=== PATIENT | female | born 1970 | race Caucasian/White ===

== ENCOUNTER 2017-04-20 14:15 | Emergency (ER) | payer MEDICAID ==
[~2017-04-20] VITALS: Ht 167.6 cm; Wt 90.0 kg
[2017-04-20 14:16] VITALS: BP 123/90; PULSE 92; RESP 24; TEMP 98.5; O2SAT 99
--- NOTE | 2017-04-20 15:13 | PD ---
HPI Chief Complaint: Corporate Receptionist Problem/Complaint Time Seen by Provider: 15:05 Travel History International Travel<30 days: No Contact w/Intl Traveler<30days: No Traveled to known affect area: No History of Present Illness HPI 46 year old female presents to the ED for evaluation of vaginal bleeding; irregular and frequent menses over the last year. She reports she has currently been bleeding for a month with a very short reprieve last week. Reports suprapubic abdominal pain; aching cramping. Denies urinary symptoms. Denies chance of . She has not sought followup or outpatient evaluation. Denies chest pain or tightness. No shortness of breath. No other symptoms to report. PFSH Past Medical History Medical History: Denies Significant Hx ?: Not Social History Alcohol Use: No Tobacco Use: Yes Substance Use: No Allergies-Medications (Allergen,Severity, Reaction): Coded Allergies: No Known Allergies (Unverified , 04/20/17) Reported Meds & Prescriptions Reported Meds & Active Scripts Active Provera (Medroxyprogesterone Acetate) 5 Mg Tab 5 Mg PO DAILY Start day 21 Review of Systems Except as stated in HPI: all other systems reviewed are Neg Physical Exam Narrative GENERAL: Well nourished female patient in no acute distress SKIN: Warm and dry. HEAD: Atraumatic. Normocephalic. EYES: Pupils equal and round. No scleral icterus. No injection or drainage. ENT: No nasal bleeding or discharge. Mucous membranes pink and moist. NECK: Trachea midline. No JVD. CARDIOVASCULAR: Regular rate and rhythm. RESPIRATORY: No accessory muscle use. Clear to auscultation. Breath sounds equal bilaterally. GASTROINTESTINAL: Abdomen soft, nondistended. Suprapubic tenderness to palpation. No guarding or rebound tenderness. Hepatic and splenic margins not palpable. GENITOURINARY: Normal external genitalia without lesions or erythema. Vaginal vault with moderate amount of dark red drainage Cervical os was open a finger tip with blood clot noted. No cervical motion tenderness. Uterus palpable and tender. Bilateral adnexa nontender without masses. MUSCULOSKELETAL: Extremities without clubbing, cyanosis, or edema. No obvious deformities. NEUROLOGICAL: Awake and alert. No obvious cranial nerve deficits. Motor grossly within normal limits. Five out of 5 muscle strength in the arms and legs. Normal speech. PSYCHIATRIC: Appropriate mood and affect; insight and judgment normal. Data Data Last Documented VS Vital Signs Date Time Temp Pulse Resp B/P (MAP) Pulse Ox O2 Delivery O2 Flow Rate FiO2 04/20/17 17:12 70 19 146/82 (103) 98 04/20/17 14:16 98.5 Room Air Orders Orders Iv Access Insert/Monitor (04/20/17 15:11) Complete Blood Count With Diff (04/20/17 15:11) Basic Metabolic Panel (Bmp) (04/20/17 15:11) Urinalysis - C+S If Indicated (04/20/17 15:11) Ed Urine Pregnancytest Poc (04/20/17 15:11) Sodium Chlor 0.9% 1000 Ml Inj (Ns 1000 M (04/20/17 15:15) Ketorolac Inj (Toradol Inj) (04/20/17 16:15) Us Pelvis Comp W Dop Transvag (04/20/17 ) Estrogens Conjugated Inj (Premarin Inj) (04/20/17 16:45) Labs Laboratory Tests Test 04/20/17 15:30 04/20/17 16:15 White Blood Count 6.6 TH/MM3 Red Blood Count 4.53 MIL/MM3 Hemoglobin 10.6 GM/DL Hematocrit 33.8 % Mean Corpuscular Volume 74.7 FL Mean Corpuscular Hemoglobin 23.3 PG Mean Corpuscular Hemoglobin Concent 31.2 % Red Cell Distribution Width 18.5 % Platelet Count 268 TH/MM3 Mean Platelet Volume 9.8 FL Neutrophils (%) (Auto) 54.0 % Lymphocytes (%) (Auto) 30.7 % Monocytes (%) (Auto) 10.3 % Eosinophils (%) (Auto) 4.4 % Basophils (%) (Auto) 0.6 % Neutrophils # (Auto) 3.6 TH/MM3 Lymphocytes # (Auto) 2.0 TH/MM3 Monocytes # (Auto) 0.7 TH/MM3 Eosinophils # (Auto) 0.3 TH/MM3 Basophils # (Auto) 0.0 TH/MM3 CBC Comment DIFF FINAL Differential Comment Blood Urea Nitrogen 6 MG/DL Creatinine 0.72 MG/DL Random Glucose 90 MG/DL Calcium Level 8.9 MG/DL Sodium Level 138 MEQ/L Potassium Level 4.7 MEQ/L Chloride Level 104 MEQ/L Carbon Dioxide Level 28.1 MEQ/L Anion Gap 6 MEQ/L Estimat Glomerular Filtration Rate 88 ML/MIN Urine Color YELLOW Urine Turbidity CLEAR Urine pH 7.5 Urine Specific [place] 1.006 Urine Protein TRACE mg/dL Urine Glucose (UA) NEG mg/dL Urine Ketones NEG mg/dL Urine Occult Blood LARGE Urine Nitrite NEG Urine Bilirubin NEG Urine Urobilinogen LESS THAN 2.0 MG/DL Urine Leukocyte Esterase NEG Urine RBC /hpf Urine WBC 6 /hpf Urine Calcium Oxalate Crystals FEW /hpf Urine Bacteria RARE /hpf Microscopic Urinalysis Comment CULT NOT INDICATED MDM Medical Decision Making Medical Screen Exam Complete: Yes Emergency Medical Condition: Yes Medical Record Reviewed: Yes Differential Diagnosis dysfunctional uterine bleeding versus menses versus perimenopausal versus neoplasm versus fibroid versus Narrative Course 46 year old female presents to the ED for evaluation of vaginal bleeding. Pt appears well. She has a moderate amount of dark red blood in her vaginal vault with an enlarged tender uterus. US is ordered; pt is treated for pain. Laboratory Tests Test 04/20/17 15:30 04/20/17 16:15 White Blood Count 6.6 TH/MM3 Red Blood Count 4.53 MIL/MM3 Hemoglobin 10.6 GM/DL Hematocrit 33.8 % Mean Corpuscular Volume 74.7 FL Mean Corpuscular Hemoglobin 23.3 PG Mean Corpuscular Hemoglobin Concent 31.2 % Red Cell Distribution Width 18.5 % Platelet Count 268 TH/MM3 Mean Platelet Volume 9.8 FL Neutrophils (%) (Auto) 54.0 % Lymphocytes (%) (Auto) 30.7 % Monocytes (%) (Auto) 10.3 % Eosinophils (%) (Auto) 4.4 % Basophils (%) (Auto) 0.6 % Neutrophils # (Auto) 3.6 TH/MM3 Lymphocytes # (Auto) 2.0 TH/MM3 Monocytes # (Auto) 0.7 TH/MM3 Eosinophils # (Auto) 0.3 TH/MM3 Basophils # (Auto) 0.0 TH/MM3 CBC Comment DIFF FINAL Differential Comment Blood Urea Nitrogen 6 MG/DL Creatinine 0.72 MG/DL Random Glucose 90 MG/DL Calcium Level 8.9 MG/DL Sodium Level 138 MEQ/L Potassium Level 4.7 MEQ/L Chloride Level 104 MEQ/L Carbon Dioxide Level 28.1 MEQ/L Anion Gap 6 MEQ/L Estimat Glomerular Filtration Rate 88 ML/MIN Urine Color YELLOW Urine Turbidity CLEAR Urine pH 7.5 Urine Specific [place] 1.006 Urine Protein TRACE mg/dL Urine Glucose (UA) NEG mg/dL Urine Ketones NEG mg/dL Urine Occult Blood LARGE Urine Nitrite NEG Urine Bilirubin NEG Urine Urobilinogen LESS THAN 2.0 MG/DL Urine Leukocyte Esterase NEG Urine RBC /hpf Urine WBC 6 /hpf Urine Calcium Oxalate Crystals FEW /hpf Urine Bacteria RARE /hpf Microscopic Urinalysis Comment CULT NOT INDICATED US reveals a suspected leioma on the anterior uterine wall. Findings are discussed with the patient. I have discussed the patient with Dr. Bates, OB /[employer] Hospitalist conservation educator. He recommends 1 dose IV premarin now and 5 days provera out patient with followup with OBGYN. pt agrees to follow up and return immediately with any acute worsening of symptoms Diagnosis Primary Impression: Dysfunctional uterine bleeding Additional Impression: Uterine leiomyoma Qualified Codes: D25.9 - Leiomyoma of uterus, unspecified Referrals: [facility] Primary Care Physician Patient Instructions: Dysfunctional Uterine Bleeding (ED), General Instructions Additional Instructions: It is important that you seek gynecology evaluation Follow-up with primary care provider Return immediately to the emergency department with any acute worsening of symptoms Med/Other Pt SpecificInfo: Prescription(s) given Scripts Medroxyprogesterone Acetate (Provera) 5 Mg Tab 5 MG PO DAILY for Uterine bleeding, #5 TAB Start day 21 Prov: Althea Herbert 04/20/17 Disposition: 01 DISCHARGE HOME Condition: Stable Althea Herbert Apr 20, 2017 15:13
[2017-04-20] MEDS ORDERED: SODIUM CHLOR 0.9% 1000 ML INJ 1,000 ML IV ONE (15:15)
[2017-04-20 16:12] LABS: AUTOMATED NEUTROPHIL # 3.6 TH/MM3 (1.8-7.7); BASOPHIL % 0.6 % (0.0-2.0); EOSINOPHIL # 0.3 TH/MM3 (0-0.4); EOSINOPHIL % 4.4 % (0.0-4.0); HEMATOCRIT 33.8 % (35.0-46.0); HEMO FLAGS DIFF FINAL; LYMPH % 30.7 % (9.0-44.0); MEAN CELL VOLUME 74.7 FL (80.0-100.0); MEAN CORPUSCULAR HEMOGLOBIN 23.3 PG (27.0-34.0); MEAN CORPUSCULAR HGB CONC 31.2 % (32.0-36.0); MONO % 10.3 % (0.0-8.0); PLATELET COUNT 268 TH/MM3 (150-450); RED BLOOD COUNT 4.53 MIL/MM3 (4.00-5.30); RED CELL DISTRIBUTION WIDTH 18.5 % (11.6-17.2); WHITE BLOOD COUNT 6.6 TH/MM3 (4.0-11.0)
[2017-04-20] MEDS ORDERED: KETOROLAC TROMETHAMINE 30 MG/ML (IVP) VIAL IV PUSH ONE (16:15)
[2017-04-20 16:26] LABS: BICARBONATE 28.1 MEQ/L (21.0-32.0); POTASSIUM 4.7 MEQ/L (3.5-5.1)
--- NOTE | 2017-04-20 16:29 | RADRPT ---
EXAM DATE/TIME: 04/20/2017 15:24 [facility] COMPARISON: No previous studies available for comparison. INDICATIONS : Vaginal bleeding. MEDICAL HISTORY : Ectopic. Vaginal bleeding and pain. SURGICAL HISTORY : section. ENCOUNTER: Initial ACUITY: 3 months PAIN SCORE: 5/10 LOCATION: Left pelvis MEASUREMENTS: TRANSABDOMINAL: RIGHT OVARY: Non visualized ENDOMETRIAL STRIPE: 13 mm FINDINGS: UTERUS: The myometrium has homogeneous echotexture with mass a solitary hypo-and anechoic area measuring 4.4 x 4.6 x 4.4 cm probable leiomyoma. RIGHT OVARY: The right ovary was nonvisualized LEFT OVARY: Ovary contains no mass or significant cystic lesion. MISCELLANEOUS: No free fluid. CONCLUSION: 4.4 x 4.6 cm suspected leiomyoma within the anterior uterine wall. The artery was not identified. The left ovary is normal. Dustin Gonzalez MD on April 20, 2017 at 16:26 Board Certified Radiologist. This report was verified electronically.
[2017-04-20] MEDS ORDERED: PROV5TAB PO (16:45)
[2017-04-20] MEDS ORDERED: ESTROGENS CONJUGATED 25 MG/5 ML VIAL IV PUSH ONE (16:45)
[2017-04-20 17:12] VITALS: BP 146/82
[2017-04-20 17:34] LABS: BACTERIA, URINE RARE /hpf; BLOOD, URINE LARGE (NEG); CALCIUM OXALATE CRYSTALS,URINE FEW /hpf; COMMENT (UR) CULT NOT INDICATED; CULTURE IF INDICATED CULT NOT INDICATED; GLUCOSE,URINE NEG (NEG); KETONE, URINE NEG (NEG); NITRITE,URINE NEG (NEG); PH, URINE 7.5 (5.0-8.5); URINE COLOR YELLOW (YELLW/STRAW)
== END 2017-04-20 17:22 | disposition home or self-care (01) ==
LOC: NEPD 14:15
DX: N93.8 Other specified abnormal uterine and vaginal bleeding (principal); D25.9 Leiomyoma of uterus, unspecified; R10.2 Pelvic and perineal pain; Z72.0 Tobacco use
CPT/HCPCS: 76830; 76856; 80048; 81001; 84703; 85025; 93975; 96361; 96374; 96375; 99285; J1410; J1885; J7030

== ENCOUNTER 2017-05-30 14:28 | Emergency (ER) | payer MEDICAID ==
[~2017-05-30] VITALS: Ht 172.7 cm; Wt 100.0 kg
[~2017-05-30 14:28] MED LIST: PROV5TAB PO
[2017-05-30 14:30] VITALS: BP 134/93; PULSE 91; RESP 15; TEMP 98.6; O2SAT 98
--- NOTE | 2017-05-30 14:56 | PD ---
Physical Exam Date Seen by Provider: May 30, 2017 Time Seen by Provider: 14:54 Narrative 46-year-old female presents the emergency department with sudden onset right-sided posterior head and neck pain with vertiginous symptoms, nausea, and vomiting which started last evening. She denies any specific headache. No fever chills or other symptoms. Symptoms are worse with movement. Patient takes no medications. She is not diabetic. She denies . No abdominal pain. Patient has no known drug allergies. Data Data Last Documented VS Vital Signs Date Time Temp Pulse Resp B/P (MAP) Pulse Ox O2 Delivery O2 Flow Rate FiO2 05/30/17 14:30 98.6 91 15 134/93 (107) 98 MDM Medical Record Reviewed: Yes Supervised Visit with AIDEE: Yes Narrative Course Patient is ill but medically stable at time of exam. Vital signs are stable. Patient is awaiting bed placement. Condition: Stable Alex De La Cruz May 30, 2017 14:56
[2017-05-30] MEDS ORDERED: SODIUM CHLOR 0.9% 1000 ML INJ 1,000 ML IV ONE (16:44)
[2017-05-30] MEDS ORDERED: diphenhydrAMINE HCL 50 MG/ML VIAL IVP ONE (16:45)
[2017-05-30] MEDS ORDERED: ACETAMINOPHEN 325 MG TAB PO ONE (16:45)
[2017-05-30] MEDS ORDERED: PROCHLORPERAZINE INJ 10 MG/2 ML VIAL IVP ONE (16:45)
[2017-05-30] MEDS ORDERED: SODIUM CHLORIDE 0.9% FLUSH 10 ML FLUSH IVF PRN (16:45)
[2017-05-30 16:51] VITALS: O2SAT 98
--- NOTE | 2017-05-30 16:56 | PD ---
HPI Chief Complaint: Headache Time Seen by Provider: 16:06 Travel History International Travel<30 days: No Contact w/Intl Traveler<30days: No Traveled to known affect area: No History of Present Illness HPI 46-year-old female complains of pain in the occipital scalp which started yesterday evening at rest. It has been constant since. Associated symptoms include dizziness. Nausea has been present. She denies a history of migraines however the states that she has headaches. Of note the patient speaks Danish primarily and the provides translation services. Online translation services were offered however the patient preferred to have translate. Photophobia is noted. PFSH Past Medical History Migraines: Yes ?: Not Ectopic : Yes Past Surgical History Section: Yes Social History Alcohol Use: No Tobacco Use: No Substance Use: No Allergies-Medications (Allergen,Severity, Reaction): Coded Allergies: No Known Allergies (Unverified , 05/30/17) Reported Meds & Prescriptions Reported Meds & Active Scripts Active No Active Prescriptions or Reported Medications Review of Systems Except as stated in HPI: all other systems reviewed are Neg Physical Exam Narrative GENERAL: Well-nourished well-developed 46-year-old female mild distress secondary to pain SKIN: Warm and dry. HEAD: Atraumatic. Normocephalic. EYES: Pupils equal and round. No scleral icterus. No injection or drainage. ENT: No nasal bleeding or discharge. Mucous membranes pink and moist. NECK: Trachea midline. No JVD. Flexion extension is normal at the neck however rotation limited secondary to pain. CARDIOVASCULAR: Regular rate and rhythm. RESPIRATORY: No accessory muscle use. Clear to auscultation. Breath sounds equal bilaterally. GASTROINTESTINAL: Abdomen soft, non-tender, nondistended. Hepatic and splenic margins not palpable. MUSCULOSKELETAL: Extremities without clubbing, cyanosis, or edema. No obvious deformities. NEUROLOGICAL: Awake and alert. No obvious cranial nerve deficits. Motor grossly within normal limits. Five out of 5 muscle strength in the arms and legs. Normal speech. PSYCHIATRIC: Appropriate mood and affect; insight and judgment normal. Data Data Last Documented VS Vital Signs Date Time Temp Pulse Resp B/P (MAP) Pulse Ox O2 Delivery O2 Flow Rate FiO2 05/30/17 16:51 98 Room Air 05/30/17 14:30 98.6 91 15 Vital Signs Date Time Temp Pulse Resp B/P (MAP) Pulse Ox O2 Delivery O2 Flow Rate FiO2 05/30/17 16:51 98 Room Air 05/30/17 14:30 98.6 91 15 134/93 (107) 98 Orders Orders Complete Blood Count With Diff (05/30/17 16:44) Basic Metabolic Panel (Bmp) (05/30/17 16:44) Ct Brain W/O Iv Contrast(Rout) (05/30/17 16:44) Ecg Monitoring (05/30/17 16:44) Iv Access Insert/Monitor (05/30/17 16:44) Oximetry (05/30/17 16:44) Sodium Chloride 0.9% Flush (Ns Flush) (05/30/17 16:45) Acetaminophen (Tylenol) (05/30/17 16:45) Prochlorperazine Inj (Compazine Inj) (05/30/17 16:45) Diphenhydramine Inj (Benadryl Inj) (05/30/17 16:45) Sodium Chlor 0.9% 1000 Ml Inj (Ns 1000 M (05/30/17 16:44) Cta Brain W Iv Contrast W 3d (05/30/17 ) Cta Neck W Iv Contrast W 3d (05/30/17 ) MDM Medical Decision Making Medical Screen Exam Complete: Yes Emergency Medical Condition: Yes Medical Record Reviewed: Yes Differential Diagnosis Aneurysm, subarachnoid, migraine Narrative Course Workup started including CTA imaging of the head and neck. Abortive therapy ordered. Oncoming provider to reassess patient and determine if additional evaluation is required. Scripts No Active Prescriptions or Reported Meds Condition: Stable Blaine Auguste MD May 30, 2017 16:56
[2017-05-30 17:45] LABS: AUTOMATED NEUTROPHIL # 2.8 TH/MM3 (1.8-7.7); BASOPHIL % 0.5 % (0.0-2.0); EOSINOPHIL # 0.2 TH/MM3 (0-0.4); EOSINOPHIL % 4.2 % (0.0-4.0); HEMATOCRIT 34.1 % (35.0-46.0); HEMO FLAGS DIFF FINAL; LYMPHOCYTE # 1.7 TH/MM3 (1.0-4.8); MEAN CELL VOLUME 74.6 FL (80.0-100.0); MEAN CORPUSCULAR HEMOGLOBIN 22.8 PG (27.0-34.0); MEAN CORPUSCULAR HGB CONC 30.6 % (32.0-36.0); MONO % 10.9 % (0.0-8.0); NEUT % 52.4 % (16.0-70.0); PLATELET COUNT 255 TH/MM3 (150-450); RED BLOOD COUNT 4.57 MIL/MM3 (4.00-5.30); RED CELL DISTRIBUTION WIDTH 18.7 % (11.6-17.2); WHITE BLOOD COUNT 5.4 TH/MM3 (4.0-11.0)
[2017-05-30] MEDS ORDERED: IOHEXOL 350 MG/ML 10 ML VIAL (for RAD DIAG) IVCONTRAST ONE (17:47)
[2017-05-30 17:58] LABS: BICARBONATE 27.1 MEQ/L (21.0-32.0); POTASSIUM 3.9 MEQ/L (3.5-5.1)
--- NOTE | 2017-05-30 17:59 | RADRPT ---
EXAM DATE/TIME: 05/30/2017 17:44 [facility] COMPARISON: No previous studies available for comparison. INDICATIONS : Dizziness and neck pain. RADIATION DOSE: 41.74 CTDIvol (mGy) MEDICAL HISTORY : None SURGICAL HISTORY : None. ENCOUNTER: Initial ACUITY: 1 day PAIN SCALE: 10/10 LOCATION: cranial TECHNIQUE: Multiple contiguous axial images were obtained of the head. Using automated exposure control and adj ustment of the mA and/or kV according to patient size, radiation dose was kept as low as reasonably a chievable to obtain optimal diagnostic quality images. DICOM format image data is available electro nically for review and comparison. FINDINGS: CEREBRUM: The ventricles are normal for age. No evidence of midline shift, mass lesion, hemorrhage or acute in farction. No extra-axial fluid collections are seen. POSTERIOR FOSSA: The cerebellum and brainstem are intact. The 4th ventricle is midline. The cerebellopontine angle i s unremarkable. EXTRACRANIAL: The visualized portion of the orbits is intact. SKULL: The calvaria is intact. No evidence of skull fracture. CONCLUSION: Negative exam. Owen Cueva MD on May 30, 2017 at 17:57 Board Certified Radiologist. This report was verified electronically.
--- NOTE | 2017-05-30 18:07 | PD ---
Physical Exam Date Seen by Provider: May 30, 2017 Data Data Last Documented VS Vital Signs Date Time Temp Pulse Resp B/P (MAP) Pulse Ox O2 Delivery O2 Flow Rate FiO2 05/30/17 18:44 98.6 83 16 128/79 (95) 98 Room Air Orders Orders Complete Blood Count With Diff (05/30/17 16:44) Basic Metabolic Panel (Bmp) (05/30/17 16:44) Ct Brain W/O Iv Contrast(Rout) (05/30/17 16:44) Ecg Monitoring (05/30/17 16:44) Iv Access Insert/Monitor (05/30/17 16:44) Oximetry (05/30/17 16:44) Sodium Chloride 0.9% Flush (Ns Flush) (05/30/17 16:45) Acetaminophen (Tylenol) (05/30/17 16:45) Prochlorperazine Inj (Compazine Inj) (05/30/17 16:45) Diphenhydramine Inj (Benadryl Inj) (05/30/17 16:45) Sodium Chlor 0.9% 1000 Ml Inj (Ns 1000 M (05/30/17 16:44) Cta Brain W Iv Contrast W 3d (05/30/17 ) Cta Neck W Iv Contrast W 3d (05/30/17 ) Iohexol 350 Inj (Omnipaque 350 Inj) (05/30/17 17:47) Prothrombin Time / Inr (Pt) (05/30/17 17:57) Act Partial Throm Time (Ptt) (05/30/17 17:57) Labs Laboratory Tests Test 05/30/17 16:45 05/30/17 18:00 White Blood Count 5.4 TH/MM3 Red Blood Count 4.57 MIL/MM3 Hemoglobin 10.4 GM/DL Hematocrit 34.1 % Mean Corpuscular Volume 74.6 FL Mean Corpuscular Hemoglobin 22.8 PG Mean Corpuscular Hemoglobin Concent 30.6 % Red Cell Distribution Width 18.7 % Platelet Count 255 TH/MM3 Mean Platelet Volume 9.9 FL Neutrophils (%) (Auto) 52.4 % Lymphocytes (%) (Auto) 32.0 % Monocytes (%) (Auto) 10.9 % Eosinophils (%) (Auto) 4.2 % Basophils (%) (Auto) 0.5 % Neutrophils # (Auto) 2.8 TH/MM3 Lymphocytes # (Auto) 1.7 TH/MM3 Monocytes # (Auto) 0.6 TH/MM3 Eosinophils # (Auto) 0.2 TH/MM3 Basophils # (Auto) 0.0 TH/MM3 CBC Comment DIFF FINAL Differential Comment Blood Urea Nitrogen 5 MG/DL Creatinine 0.75 MG/DL Random Glucose 133 MG/DL Calcium Level 8.3 MG/DL Sodium Level 137 MEQ/L Potassium Level 3.9 MEQ/L Chloride Level 105 MEQ/L Carbon Dioxide Level 27.1 MEQ/L Anion Gap 5 MEQ/L Estimat Glomerular Filtration Rate 84 ML/MIN Prothrombin Time 11.0 SEC Prothromb Time International Ratio 1.0 RATIO Activated Partial Thromboplast Time 25.0 SEC MDM Medical Record Reviewed: Yes Supervised Visit with AIDEE: No Interpretation(s) Vital Signs Date Time Temp Pulse Resp B/P (MAP) Pulse Ox O2 Delivery O2 Flow Rate FiO2 05/30/17 16:51 98 Room Air 05/30/17 14:30 98.6 91 15 134/93 (107) 98 Differential Diagnosis Differential includes migraine headache, aneurysm, SAH Narrative Course Patient was signed out to me by Dr. Auguste at change of shift. Patient currently pending re-evaluation as well as CT reports. Patient is a pleasant 46 year old female who presents to the ER with her with c/o of occipital headache and dizzyness which began yesterday. Reports history of migraines in the past. IVF, acetaminophen as well as benadryl and compazine has been administered. Patient reports that she has near complete relief of symptoms at this time. Patient currently pending CT results. Patient reports relief of headache/dizzyness. Reports that she was able to ambulate without any difficultly. Report no c/o at this time CBC & BMP Diagram 05/30/17 16:45 Calcium Level 8.3 L Last Impressions Head CT 05/30/17 1644 Signed Impressions: Service Date/Time: Tuesday, May 30, 2017 17:44 - CONCLUSION: Negative exam. Owen Cueva MD Neck CTA 05/30/17 0000 Signed Impressions: Service Date/Time: Tuesday, May 30, 2017 17:44 - CONCLUSION: Normal examination. Michael Monae MD Head CTA 05/30/17 0000 Signed Impressions: Service Date/Time: Tuesday, May 30, 2017 17:44 - CONCLUSION: Unremarkable study. Michael Monae MD Patient at this time with complete relief of symptoms. I did review all labs and studies with her as well as her in detail. I offered patient an LP to rule out SAH as I explained that CTA does not rule this diagnosis out completely. Patient reports that she is feeling much better and kindly refuses this procedure. Patient wishes to be discharged from ER at this time. Discussed need for her to follow up with a neurologist as outpatient as well as her pcp. Signs and symptoms of when to return to the ER was reviewed with patient and her in detail. Please note that patient is Ch[place] speaking. I offered patient a senior business analyst which she refuses as she requested that her translate for her. Patient ambulating in the ER with normal gait at discharge. Patient with no neurological deficits. She will follow up with PCP and neurologist and will return to ER as needed. Patient thankful for care. Diagnosis Primary Impression: Cephalgia Qualified Codes: R51 - Headache Patient Instructions: General Instructions Additional Instruction: Please provide patient with a copy of their lab work and studies at discharge* * Please follow up with your primary care doctor in 2-3 days Please follow up with a neurologist as soon as possible Return to the ER if symptoms worsen or progress Return to the ER as needed Med/Other Pt SpecificInfo: Prescription(s) given Scripts [id number]-Qrijttvj-Codeine (Fiorinal-Codeine #3) [id number] Mg Cap 1-2 CAP PO Q4H Y for HEADACHE, #12 CAP 0 Refills Do not exceed 6 capsules/day. Prov: Beronica Vallecillo DO 05/30/17 Disposition: 01 DISCHARGE HOME Condition: Stable Beronica Vallecillo DO May 30, 2017 18:07
--- NOTE | 2017-05-30 18:18 | RADRPT ---
EXAM DATE/TIME: 05/30/2017 17:44 [facility] COMPARISON: CT BRAIN W/O CONTRAST, May 30, 2017, 17:44. INDICATIONS : Dizziness with head and neck pain. IV CONTRAST: 74 cc Omnipaque 350 (iohexol) IV ; Cumulative dose for multiple exams. RADIATION DOSE: 28.42 CTDIvol (mGy) ; Combined studies MEDICAL HISTORY : None SURGICAL HISTORY : None. ENCOUNTER: Initial ACUITY: 1 day PAIN SCALE: 9/10 LOCATION: cranial TECHNIQUE: Volumetric scanning was performed using a multi-row detector CT scanner. The data was post processed with a variety of visualization algorithms including full volume maximum intensity projection, multi -planar sliding thin slab reformation, curved planar reformation, and surface rendering techniques. Using automated exposure control and adjustment of the mA and/or kV according to patient size, radiat ion dose was kept as low as reasonably achievable to obtain optimal diagnostic quality images. DICO M format image data is available electronically for review and comparison. FINDINGS: No significant vascular malformations, vessel truncation or aneurysmal dilatations are seen. CONCLUSION: Unremarkable study. Michael Monae MD on May 30, 2017 at 18:13 Board Certified Radiologist. This report was verified electronically.
--- NOTE | 2017-05-30 18:19 | RADRPT ---
EXAM DATE/TIME: 05/30/2017 17:44 [facility] COMPARISON: CT BRAIN W/O CONTRAST, May 30, 2017, 17:44. CTA BRAIN W 3D RECON, May 30, 2017, 17:44. INDICATIONS : Dizziness with head and neck pain. IV CONTRAST: 74 cc Omnipaque 350 (iohexol) IV ; Cumulative dose for multiple exams. RADIATION DOSE: 28.42 CTDIvol (mGy) ; Combined studies MEDICAL HISTORY : None SURGICAL HISTORY : None. ENCOUNTER: Initial ACUITY: 1 day PAIN SCALE: 10/10 LOCATION: neck Elevated flow velocities and ICA/CCA ratios have been found to correlate with increased degrees of vessel stenosis, calculated as percentage of diameter relative to a normal segment of distal ICA/CCA. TECHNIQUE: Volumetric scanning was performed using a multirow detector CT scanner. The data was post processed with a variety of visualization algorithms including full-volume maximum intensity projection, multip lanar sliding thin-slab reformation, curved-planar reformation, and surface-rendering techniques. Us ing automated exposure control and adjustment of the mA and/or kV according to patient size, radiatio n dose was kept as low as reasonably achievable to obtain optimal diagnostic quality images. DICOM f ormat image data is available electronically for review and comparison. FINDINGS: AORTIC ARCH: There is a three-vessel origin of the great vessels from the aorta. No evidence of ostial narrowing. RIGHT CAROTID: The common carotid artery is intact. The carotid bulb has a normal configuration without ulceration o r narrowing. The internal carotid artery lumen is smooth without stenosis. The external carotid nixon ry is intact. LEFT CAROTID: The common carotid artery is intact. The carotid bulb has a normal configuration without ulceration or narrowing. The internal carotid artery lumen is smooth without stenosis. The external carotid ar sheryl is intact. VERTEBRALS: The vertebral arteries have a symmetric diameter. No stenotic lesions are seen. CONCLUSION: Normal examination. Michael Monae MD on May 30, 2017 at 18:17 Board Certified Radiologist. This report was verified electronically.
[2017-05-30 18:44] VITALS: BP 128/79; PULSE 83; RESP 16; TEMP 98.6; O2SAT 98
[2017-05-30] MEDS ORDERED: FIOR30CA12 PO (18:48)
== END 2017-05-30 19:12 | disposition home or self-care (01) ==
LOC: NEPD 14:28
DX: R51 Headache (principal); R42 Dizziness and giddiness
CPT/HCPCS: 70450; 70496; 70498; 80048; 85025; 85610; 85730; 96361; 96374; 96375; 99285; J0780; J1200; J7030; Q9967

== ENCOUNTER 2017-12-15 19:28 | Emergency (ER) | payer SELFPAY ==
[~2017-12-15] VITALS: Ht 167.6 cm; Wt 89.0 kg
[~2017-12-15 19:28] MED LIST changes: +FIOR30CA12 PO; -PROV5TAB PO
[2017-12-15 19:43] VITALS: BP 161/87; PULSE 92; RESP 22; TEMP 98.5; O2SAT 99
[2017-12-15] MEDS ORDERED: SODIUM CHLOR 0.9% 1000 ML INJ 1,000 ML IV SCH (19:50)
--- NOTE | 2017-12-15 19:55 | PD ---
HPI Chief Complaint: Abdominal Pain Time Seen by Provider: 19:47 Travel History International Travel<30 days: No Contact w/Intl Traveler<30days: No Traveled to known affect area: No History of Present Illness HPI 47-year-old female complains of abdominal pain nausea vomiting diarrhea. The symptoms started this morning, about 12 hours prior to ER evaluation. She also describes body aches and pains. She took NyQuil and slept over the course of the day however symptoms persisted. Associated symptoms include chills. No blood in the diarrhea or vomit. She reports episodes of vomiting and 2 episodes of diarrhea. Patient has a history of . No past medical history. No medications. PFSH Past Medical History Migraines: Yes ?: Unknown Ectopic : Yes Past Surgical History Section: Yes Social History Alcohol Use: No Tobacco Use: No Substance Use: No Allergies-Medications (Allergen,Severity, Reaction): Coded Allergies: No Known Allergies (Unverified Allergy, Unknown, 12/15/17) Reported Meds & Prescriptions Reported Meds & Active Scripts Active Zofran Odt (Ondansetron Odt) 4 Mg Tab 4 Mg SL Q8HR PRN Fiorinal-Codeine #3 (Ngyubmcpke-Mbsqnna-Uekhirxg-Codeine) 04-471-99-30 Mg Cap 1- 2 Cap PO Q4H PRN Do not exceed 6 capsules/day. Review of Systems Except as stated in HPI: all other systems reviewed are Neg General / Constitutional: Positive: Chills Physical Exam Narrative GENERAL: 47-year-old female pleasant well-nourished well-developed mild to moderate distress secondary to vomiting and or abdominal pain, emesis bag with about 50 cc of emesis Vital Signs Date Time Temp Pulse Resp B/P (MAP) Pulse Ox O2 Delivery O2 Flow Rate FiO2 12/15/17 19:43 98.5 92 22 161/87 (111) 99 SKIN: Warm and dry. HEAD: Atraumatic. Normocephalic. EYES: Pupils equal and round. No scleral icterus. No injection or drainage. ENT: No nasal bleeding or discharge. Mucous membranes pink and moist. NECK: Trachea midline. No JVD. CARDIOVASCULAR: Regular rate and rhythm. RESPIRATORY: No accessory muscle use. Clear to auscultation. Breath sounds equal bilaterally. GASTROINTESTINAL: Soft. Tenderness palpation right upper quadrant. MUSCULOSKELETAL: Extremities without clubbing, cyanosis, or edema. No obvious deformities. NEUROLOGICAL: Awake and alert. No obvious cranial nerve deficits. Motor grossly within normal limits. Five out of 5 muscle strength in the arms and legs. Normal speech. PSYCHIATRIC: Appropriate mood and affect; insight and judgment normal. Data Data Last Documented VS Vital Signs Date Time Temp Pulse Resp B/P (MAP) Pulse Ox O2 Delivery O2 Flow Rate FiO2 12/15/17 23:40 78 16 148/78 (101) 99 12/15/17 19:43 98.5 Orders Orders Complete Blood Count With Diff (12/15/17 19:50) Comprehensive Metabolic Panel (12/15/17 19:50) Lipase (12/15/17 19:50) Urinalysis - C+S If Indicated (12/15/17 19:50) Ct Abd/Pel W Iv Contrast(Rout) (12/15/17 19:50) Iv Access Insert/Monitor (12/15/17 19:50) Ecg Monitoring (12/15/17 19:50) Oximetry (12/15/17 19:50) Sodium Chlor 0.9% 1000 Ml Inj (Ns 1000 M (12/15/17 19:50) Sodium Chloride 0.9% Flush (Ns Flush) (12/15/17 20:00) Ketorolac Inj (Toradol Inj) (12/15/17 20:00) Ed Urine Pregnancytest Poc (12/15/17 19:50) Al-Mag Hy-Si 40-40-4 Mg/Ml Liq (Mag-Al P (12/15/17 20:00) Lidocaine 2% Viscous (Xylocaine 2% Visco (12/15/17 20:00) Ondansetron Odt (Zofran Odt) (12/15/17 20:00) Iohexol 350 Inj (Omnipaque 350 Inj) (12/15/17 21:38) Ed Discharge Order (12/15/17 23:24) Labs Laboratory Tests Test 12/15/17 20:00 12/15/17 22:35 White Blood Count 5.8 TH/MM3 Red Blood Count 4.56 MIL/MM3 Hemoglobin 9.7 GM/DL Hematocrit 32.3 % Mean Corpuscular Volume 70.7 FL Mean Corpuscular Hemoglobin 21.2 PG Mean Corpuscular Hemoglobin Concent 30.0 % Red Cell Distribution Width 20.0 % Platelet Count 239 TH/MM3 Mean Platelet Volume 9.7 FL Neutrophils (%) (Auto) 47.2 % Lymphocytes (%) (Auto) 35.5 % Monocytes (%) (Auto) 12.4 % Eosinophils (%) (Auto) 4.3 % Basophils (%) (Auto) 0.6 % Neutrophils # (Auto) 2.7 TH/MM3 Lymphocytes # (Auto) 2.0 TH/MM3 Monocytes # (Auto) 0.7 TH/MM3 Eosinophils # (Auto) 0.2 TH/MM3 Basophils # (Auto) 0.0 TH/MM3 CBC Comment DIFF FINAL Differential Comment Blood Urea Nitrogen 7 MG/DL Creatinine 0.81 MG/DL Random Glucose 103 MG/DL Total Protein 8.3 GM/DL Albumin 3.4 GM/DL Calcium Level 8.6 MG/DL Alkaline Phosphatase 89 U/L Aspartate Amino Transf (AST/SGOT) 36 U/L Alanine Aminotransferase (ALT/SGPT) 31 U/L Total Bilirubin 0.2 MG/DL Sodium Level 139 MEQ/L Potassium Level 3.8 MEQ/L Chloride Level 104 MEQ/L Carbon Dioxide Level 26.2 MEQ/L Anion Gap 9 MEQ/L Estimat Glomerular Filtration Rate 76 ML/MIN Lipase 137 U/L Urine Color LIGHT-YELLOW Urine Turbidity CLEAR Urine pH 6.0 Urine Specific [place] GREATER THAN 1.050 Urine Protein NEG mg/dL Urine Glucose (UA) NEG mg/dL Urine Ketones NEG mg/dL Urine Occult Blood NEG Urine Nitrite NEG Urine Bilirubin NEG Urine Urobilinogen LESS THAN 2.0 MG/DL Urine Leukocyte Esterase NEG Urine RBC LESS THAN 1 /hpf Urine WBC LESS THAN 1 /hpf Urine Squamous Epithelial Cells <1 /hpf Urine Mucus FEW /lpf Microscopic Urinalysis Comment CULT NOT INDICATED MDM Medical Decision Making Medical Screen Exam Complete: Yes Emergency Medical Condition: Yes Medical Record Reviewed: Yes Differential Diagnosis Gastritis, pancreatitis, appendicitis, acute cholecystitis, ascending cholangitis, AAA, perforated viscous, mesenteric ischemia, hepatitis, cystitis, hydronephrosis/hydroureter/nephroureter calculus, mesenteric adenitis, biliary colic Narrative Course CBC & BMP Diagram 12/15/17 20:00 Total Protein 8.3 H, Albumin 3.4, Calcium Level 8.6, Alkaline Phosphatase 89, Aspartate Amino Transf (AST/SGOT) 36, Alanine Aminotransferase (ALT/SGPT) 31, Total Bilirubin 0.2 Lipase normal Last Impressions Abdomen/Pelvis CT 12/15/17 1950 Signed Impressions: Service Date/Time: Friday, December 15, 2017 21:34 - CONCLUSION: 1. No acute abnormality. 2. Colonic diverticulosis without acute inflammation. 3. Heterogeneous uterus likely secondary to fibroids. Alfie Henry Jr., MD Patient reports feeling better after receiving IV fluids and antiemetics. If the urinalysis is normal the patient will be discharged with a diagnosis of abdominal pain nonspecified although certainly gastroenteritis is considered on the differential. Anemia stable. Diagnosis Primary Impression: Abdominal pain Qualified Codes: R10.11 - Right upper quadrant pain Additional Impression: Vomiting and diarrhea Med/Other Pt SpecificInfo: Prescription(s) given Scripts Ondansetron Odt (Zofran Odt) 4 Mg Tab 4 MG SL Q8HR Y for Nausea/Vomiting, #10 TAB 0 Refills Prov: Blaine Auguste MD 12/15/17 Disposition: DISCHARGE HOME Condition: Stable Blaine Auguste MD December 15, 2017 19:55
[2017-12-15] MEDS ORDERED: ONDANSETRON ODT 4 MG TAB PO ONE (20:00)
[2017-12-15] MEDS ORDERED: ALUMINUM/MAGNESIUM/SIMETH 30 ML CUP PO ONE (20:00)
[2017-12-15] MEDS ORDERED: KETOROLAC TROMETHAMINE 30 MG/ML (IVP) VIAL IVP ONE (20:00)
[2017-12-15] MEDS ORDERED: LIDOCAINE VISCOUS 2% SOLN 15 ML UDC PO ONE (20:00)
[2017-12-15] MEDS ORDERED: SODIUM CHLORIDE 0.9% FLUSH 10 ML FLUSH IV FLUSH PRN (20:00)
[2017-12-15 20:27] LABS: AUTOMATED NEUTROPHIL # 2.7 TH/MM3 (1.8-7.7); BASOPHIL % 0.6 % (0.0-2.0); EOSINOPHIL # 0.2 TH/MM3 (0-0.4); EOSINOPHIL % 4.3 % (0.0-4.0); HEMATOCRIT 32.3 % (35.0-46.0); HEMOGLOBIN 9.7 GM/DL (11.6-15.3); LYMPH % 35.5 % (9.0-44.0); MEAN CELL VOLUME 70.7 FL (80.0-100.0); MEAN CORPUSCULAR HEMOGLOBIN 21.2 PG (27.0-34.0); MEAN PLATELET VOLUME 9.7 FL (7.0-11.0); MONO % 12.4 % (0.0-8.0); MONOCYTE # 0.7 TH/MM3 (0-0.9); NEUT % 47.2 % (16.0-70.0); PLATELET COUNT 239 TH/MM3 (150-450); RED BLOOD COUNT 4.56 MIL/MM3 (4.00-5.30); WHITE BLOOD COUNT 5.8 TH/MM3 (4.0-11.0)
[2017-12-15 20:38] LABS: ALBUMIN 3.4 GM/DL (3.4-5.0); AST (GOT) 36 U/L (15-37); BICARBONATE 26.2 MEQ/L (21.0-32.0); BLOOD UREA NITROGEN 7 MG/DL (7-18); CALCIUM 8.6 MG/DL (8.5-10.1); CHLORIDE 104 MEQ/L (98-107); CREATININE 0.81 MG/DL (0.50-1.00); GLOMERULAR FILTRATION RATE 76 ML/MIN (>89); GLUCOSE,RANDOM 103 MG/DL (74-106); SODIUM (NA) 139 MEQ/L (136-145)
[2017-12-15 20:39] LABS: ALT (GPT) 31 U/L (10-53)
[2017-12-15 20:41] LABS: ALKALINE PHOSPHATASE 89 U/L (45-117); TOTAL BILIRUBIN ADULT 0.2 MG/DL (0.2-1.0); TOTAL PROTEIN 8.3 GM/DL (6.4-8.2)
[2017-12-15] MEDS ORDERED: IOHEXOL 350 MG/ML 10 ML VIAL (for RAD DIAG) IVCONTRAST ONE (21:38)
--- NOTE | 2017-12-15 21:54 | RADRPT ---
EXAM DATE/TIME: 12/15/2017 21:34 [facility] COMPARISON: No previous studies available for comparison. INDICATIONS : Abdominal pain and vomiting. IV CONTRAST: 95 cc Omnipaque 350 (iohexol) IV ORAL CONTRAST: No oral contrast ingested. RADIATION DOSE: 16.49 CTDIvol (mGy) MEDICAL HISTORY : None SURGICAL HISTORY : None. ENCOUNTER: Initial ACUITY: 1 day PAIN SCALE: 6/10 LOCATION: abdomen TECHNIQUE: Volumetric scanning of the abdomen and pelvis was performed. Using automated exposure control and ad justment of the mA and/or kV according to patient size, radiation dose was kept as low as reasonably achievable to obtain optimal diagnostic quality images. DICOM format image data is available electro nically for review and comparison. FINDINGS: LOWER LUNGS: The visualized lower lungs are clear. LIVER: Homogeneous density without lesion. There is no dilation of the biliary tree. No calcified gallston es. SPLEEN: Normal size without lesion. PANCREAS: Within normal limits. KIDNEYS: Normal in size and shape. There is no mass, stone or hydronephrosis. ADRENAL GLANDS: Within normal limits. VASCULAR: There is no aortic aneurysm. BOWEL/MESENTERY: Scattered colonic diverticuli without acute inflammation. The stomach, small bowel, and colon demonst rate no acute abnormality. There is no free intraperitoneal air or fluid. ABDOMINAL WALL: Within normal limits. RETROPERITONEUM: There is no lymphadenopathy. BLADDER: No wall thickening or mass. REPRODUCTIVE: The uterus is heterogeneous. No discrete mass observed. It is anteverted. Tiny calcification seen inv olving the ovaries bilaterally. No free fluid. INGUINAL: There is no lymphadenopathy or hernia. MUSCULOSKELETAL: Within normal limits for patient age. CONCLUSION: 1. No acute abnormality. 2. Colonic diverticulosis without acute inflammation. 3. Heterogeneous uterus likely secondary to fibroids. Alfie Henry Jr., MD on December 15, 2017 at 21:48 Board Certified Radiologist. This report was verified electronically.
[2017-12-15] MEDS ORDERED: ZOFR4TAB3 SL (23:09)
[2017-12-15 23:21] LABS: BILIRUBIN, URINE NEG (NEG); BLOOD, URINE NEG (NEG); GLUCOSE,URINE NEG (NEG); KETONE, URINE NEG (NEG); MUCUS URINE FEW /lpf (OCC); NITRITE,URINE NEG (NEG); SQUAMOUS EPITHELIAL CELL URINE <1 /hpf (0-5); URINE COLOR LIGHT-YELLOW (YELLW/STRAW); URINE LEUKOCYTE ESTERASE NEG (NEG)
[2017-12-15 23:40] VITALS: BP 148/78
== END 2017-12-15 23:47 | disposition home or self-care (01) ==
LOC: NEPC 19:28
DX: R10.11 Right upper quadrant pain (principal); K57.30 Diverticulosis of large intestine without perforation or abscess without bleeding; R11.2 Nausea with vomiting, unspecified
CPT/HCPCS: 74177; 80053; 81001; 83690; 84703; 85025; 96361; 96374; 99285; J1885; J7030; Q9967

== ENCOUNTER 2017-12-19 11:49 | Emergency (ER) | payer SELFPAY ==
[~2017-12-19] VITALS: Ht 167.6 cm; Wt 82.2 kg
[~2017-12-19 11:49] MED LIST changes: +ZOFR4TAB3 SL
[2017-12-19 11:52] VITALS: BP 141/91; PULSE 80; RESP 18; TEMP 98.5; O2SAT 98
[2017-12-19] MEDS ORDERED: SODIUM CHLOR 0.9% 1000 ML INJ 1,000 ML IV ONE (12:43)
[2017-12-19] MEDS ORDERED: SODIUM CHLORIDE 0.9% FLUSH 10 ML FLUSH IVF PRN (12:45)
[2017-12-19] MEDS ORDERED: ALUMINUM/MAGNESIUM/SIMETH 30 ML CUP PO ONE (12:45)
[2017-12-19] MEDS ORDERED: LIDOCAINE VISCOUS 2% SOLN 15 ML UDC PO ONE (12:45)
[2017-12-19] MEDS ORDERED: MORPHINE SULFATE 4 MG/ML INJ IV PUSH ONE (12:45)
[2017-12-19] MEDS ORDERED: ONDANSETRON ODT 4 MG TAB PO/SL ONE (12:45)
[2017-12-19] MEDS ORDERED: FAMOTIDINE 20 MG/2 ML VIAL IV PUSH ONE (12:45)
--- NOTE | 2017-12-19 12:54 | PD ---
HPI Chief Complaint: GI Complaint Time Seen by Provider: 12:30 Travel History International Travel<30 days: No Contact w/Intl Traveler<30days: No Traveled to known affect area: No History of Present Illness HPI The patient is a 47-year-old female who presents to the emergency department for nausea, epigastric abdominal pain, and diarrhea. The patient states her symptoms started last week, she was evaluated in the emergency department several days ago where she underwent laboratory evaluation and CT of the abdomen and pelvis. The patient's workup at that time was unremarkable and the patient was discharged home. However, she continues to have epigastric abdominal pain that is nonradiating and is associated with diarrhea. The patient states she has loose, nonbloody diarrhea with every bowel movement that is worse after eating. She denies any fever, chills, or sweats. She denies any sick contacts at home. 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 Symptoms are moderate. She denies any known history C. difficile , recent travel internationally, or drinking well water. PFSH Past Medical History Medical History: Denies Significant Hx Diminished Hearing: No Migraines: Yes Tetanus Vaccination: Unknown ?: Not LMP: 12/01/17 Ectopic : Yes Past Surgical History Surgical History: No Previous Surgery Section: Yes Social History Alcohol Use: No Tobacco Use: Yes (1/2 ppd) Substance Use: No Allergies-Medications (Allergen,Severity, Reaction): Coded Allergies: No Known Allergies (Unverified Allergy, Unknown, 12/15/17) Reported Meds & Prescriptions Reported Meds & Active Scripts Active Zofran Odt (Ondansetron Odt) 4 Mg Tab 4 Mg SL Q8HR PRN Fiorinal-Codeine #3 (Arrbprcmcr-Yomlfgf-Aifxfeuo-Codeine) 34-243-01-30 Mg Cap 1- 2 Cap PO Q4H PRN Do not exceed 6 capsules/day. Review of Systems Except as stated in HPI: all other systems reviewed are Neg General / Constitutional: No: Fever Cardiovascular: No: Chest Pain or Discomfort Respiratory: No: Shortness of Breath Gastrointestinal: Positive: Nausea, Diarrhea, Abdominal Pain, No: Vomiting Genitourinary: No: Dysuria Musculoskeletal: Positive: Weakness, No: Myalgias Neurologic: Positive: Weakness Physical Exam Narrative GENERAL: Awake, alert, pleasant 47-year-old female who appears her stated age and is in no acute respiratory distress. SKIN: Focused skin assessment warm/dry. HEAD: Atraumatic. Normocephalic. EYES: Pupils equal and round. No scleral icterus. No injection or drainage. ENT: No nasal bleeding or discharge. Mucous membranes pink and moist. NECK: Trachea midline. No JVD. CARDIOVASCULAR: Regular rate and rhythm. No murmur appreciated. RESPIRATORY: No accessory muscle use. Clear to auscultation. Breath sounds equal bilaterally. GASTROINTESTINAL: Abdomen soft, tender palpation right upper quadrant and epigastrium. No guarding or rigidity. MUSCULOSKELETAL: No obvious deformities. No clubbing. No cyanosis. No edema. NEUROLOGICAL: Awake and alert. No obvious cranial nerve deficits. Motor grossly within normal limits. Normal speech. PSYCHIATRIC: Appropriate mood and affect; insight and judgment normal. Data Data Last Documented VS Vital Signs Date Time Temp Pulse Resp B/P (MAP) Pulse Ox O2 Delivery O2 Flow Rate FiO2 12/19/17 15:03 76 16 128/74 (92) 99 Room Air 12/19/17 11:52 98.5 Orders Orders Complete Blood Count With Diff (12/19/17 12:43) Comprehensive Metabolic Panel (12/19/17 12:43) Urinalysis - C+S If Indicated (12/19/17 12:43) Lipase (12/19/17 12:43) Iv Access Insert/Monitor (12/19/17 12:43) Ecg Monitoring (12/19/17 12:43) Oximetry (12/19/17 12:43) Morphine Inj (Morphine Inj) (12/19/17 12:45) Ondansetron Odt (Zofran Odt) (12/19/17 12:45) Sodium Chlor 0.9% 1000 Ml Inj (Ns 1000 M (12/19/17 12:43) Sodium Chloride 0.9% Flush (Ns Flush) (12/19/17 12:45) C Diff Toxin Pcr (12/19/17 12:43) Enteric Path (Stool) (12/19/17 12:43) Lactic Acid (12/19/17 12:43) Famotidine Inj (Pepcid Inj) (12/19/17 12:45) Al-Mag Hy-Si 40-40-4 Mg/Ml Liq (Mag-Al P (12/19/17 12:45) Lidocaine 2% Viscous (Xylocaine 2% Visco (12/19/17 12:45) Labs Laboratory Tests Test 12/19/17 12:45 12/19/17 13:15 White Blood Count 3.4 TH/MM3 Red Blood Count 4.90 MIL/MM3 Hemoglobin 10.4 GM/DL Hematocrit 34.5 % Mean Corpuscular Volume 70.3 FL Mean Corpuscular Hemoglobin 21.2 PG Mean Corpuscular Hemoglobin Concent 30.1 % Red Cell Distribution Width 19.6 % Platelet Count 251 TH/MM3 Mean Platelet Volume 9.3 FL Neutrophils (%) (Auto) 40.2 % Lymphocytes (%) (Auto) 39.1 % Monocytes (%) (Auto) 15.9 % Eosinophils (%) (Auto) 4.2 % Basophils (%) (Auto) 0.6 % Neutrophils # (Auto) 1.4 TH/MM3 Lymphocytes # (Auto) 1.3 TH/MM3 Monocytes # (Auto) 0.5 TH/MM3 Eosinophils # (Auto) 0.1 TH/MM3 Basophils # (Auto) 0.0 TH/MM3 CBC Comment DIFF FINAL Differential Comment Blood Urea Nitrogen 7 MG/DL Creatinine 0.72 MG/DL Random Glucose 105 MG/DL Total Protein 8.6 GM/DL Albumin 3.3 GM/DL Calcium Level 8.6 MG/DL Alkaline Phosphatase 102 U/L Aspartate Amino Transf (AST/SGOT) 29 U/L Alanine Aminotransferase (ALT/SGPT) 26 U/L Total Bilirubin 0.3 MG/DL Sodium Level 140 MEQ/L Potassium Level 4.2 MEQ/L Chloride Level 106 MEQ/L Carbon Dioxide Level 25.7 MEQ/L Anion Gap 8 MEQ/L Estimat Glomerular Filtration Rate 88 ML/MIN Lactic Acid Level 0.9 mmol/L Lipase 97 U/L Urine Color LIGHT-YELLOW Urine Turbidity CLEAR Urine pH 8.5 Urine Specific [place] 1.014 Urine Protein NEG mg/dL Urine Glucose (UA) NEG mg/dL Urine Ketones NEG mg/dL Urine Occult Blood NEG Urine Nitrite NEG Urine Bilirubin NEG Urine Urobilinogen LESS THAN 2.0 MG/DL Urine Leukocyte Esterase NEG Urine Squamous Epithelial Cells 1 /hpf Microscopic Urinalysis Comment CULT NOT INDICATED Stool C. difficile Toxin (PCR) NEGATIVE Stl C. difficile Toxin Epiderm 027 PRESUMPTIVE NEGATIVE MDM Medical Decision Making Medical Screen Exam Complete: Yes Emergency Medical Condition: Yes Medical Record Reviewed: Yes Interpretation(s) Laboratory Tests Test 12/19/17 12:45 12/19/17 13:15 White Blood Count 3.4 TH/MM3 Red Blood Count 4.90 MIL/MM3 Hemoglobin 10.4 GM/DL Hematocrit 34.5 % Mean Corpuscular Volume 70.3 FL Mean Corpuscular Hemoglobin 21.2 PG Mean Corpuscular Hemoglobin Concent 30.1 % Red Cell Distribution Width 19.6 % Platelet Count 251 TH/MM3 Mean Platelet Volume 9.3 FL Neutrophils (%) (Auto) 40.2 % Lymphocytes (%) (Auto) 39.1 % Monocytes (%) (Auto) 15.9 % Eosinophils (%) (Auto) 4.2 % Basophils (%) (Auto) 0.6 % Neutrophils # (Auto) 1.4 TH/MM3 Lymphocytes # (Auto) 1.3 TH/MM3 Monocytes # (Auto) 0.5 TH/MM3 Eosinophils # (Auto) 0.1 TH/MM3 Basophils # (Auto) 0.0 TH/MM3 CBC Comment DIFF FINAL Differential Comment Blood Urea Nitrogen 7 MG/DL Creatinine 0.72 MG/DL Random Glucose 105 MG/DL Total Protein 8.6 GM/DL Albumin 3.3 GM/DL Calcium Level 8.6 MG/DL Alkaline Phosphatase 102 U/L Aspartate Amino Transf (AST/SGOT) 29 U/L Alanine Aminotransferase (ALT/SGPT) 26 U/L Total Bilirubin 0.3 MG/DL Sodium Level 140 MEQ/L Potassium Level 4.2 MEQ/L Chloride Level 106 MEQ/L Carbon Dioxide Level 25.7 MEQ/L Anion Gap 8 MEQ/L Estimat Glomerular Filtration Rate 88 ML/MIN Lactic Acid Level 0.9 mmol/L Lipase 97 U/L Urine Color LIGHT-YELLOW Urine Turbidity CLEAR Urine pH 8.5 Urine Specific [place] 1.014 Urine Protein NEG mg/dL Urine Glucose (UA) NEG mg/dL Urine Ketones NEG mg/dL Urine Occult Blood NEG Urine Nitrite NEG Urine Bilirubin NEG Urine Urobilinogen LESS THAN 2.0 MG/DL Urine Leukocyte Esterase NEG Urine Squamous Epithelial Cells 1 /hpf Microscopic Urinalysis Comment CULT NOT INDICATED Stool C. difficile Toxin (PCR) NEGATIVE Stl C. difficile Toxin Epiderm 027 PRESUMPTIVE NEGATIVE Differential Diagnosis Differential diagnosis includes C. difficile, colitis, enteritis, gastroenteritis, pancreatitis, food allergy, inflammatory diarrhea, infectious diarrhea. Narrative Course IV was established, labs are drawn and sent, and the patient was placed on cardiac telemetry monitoring and continuous pulse oximetry monitoring. The patient was administered Pepcid, morphine, Zofran, and a GI cocktail. I reviewed the EMR, the patient's previous workup in the emergency department including laboratory evaluation and CT of the abdomen and pelvis with IV contrast was unremarkable. C. difficile was ordered and enteric pathogens were ordered as patient is continues to have symptoms 1 week later and does work in a hospital. The patient was reevaluated after the medications, her pain is significantly improved. Patient will be placed on Zantac and Bentyl as needed. C. difficile is negative. She is advised to follow-up with her primary physician if symptoms persist she may need evaluation by gastroenterology and/ or referral to gastroenterology. Patient is stable for outpatient follow-up. Diagnosis Primary Impression: Epigastric abdominal pain Additional Impression: Diarrhea Qualified Codes: R19.7 - Diarrhea, unspecified Patient Instructions: General Instructions Additional Instructions: Medications as directed. Please provide the patient a copy of her labs at discharge. Follow-up with a primary physician, you may benefit from referral to gastroenterology for endoscopy and/or colonoscopy if symptoms persist. Med/Other Pt SpecificInfo: Prescription(s) given Scripts Dicyclomine (Bentyl) 10 Mg Cap 10 MG PO QID for Bowel Management, #12 CAP 0 Refills Prov: John Augustin MD 12/19/17 Ranitidine (Zantac) 150 Mg Tab 150 MG PO BID for Reduce Stomach Acid, #30 TAB 0 Refills Prov: John Augustin MD 12/19/17 Disposition: 01 DISCHARGE HOME Condition: Stable John Augustin MD December 19, 2017 12:54
[2017-12-19 13:05] LABS: AUTOMATED NEUTROPHIL # 1.4 TH/MM3 (1.8-7.7); BASOPHIL % 0.6 % (0.0-2.0); EOSINOPHIL # 0.1 TH/MM3 (0-0.4); EOSINOPHIL % 4.2 % (0.0-4.0); HEMATOCRIT 34.5 % (35.0-46.0); HEMOGLOBIN 10.4 GM/DL (11.6-15.3); LYMPH % 39.1 % (9.0-44.0); LYMPHOCYTE # 1.3 TH/MM3 (1.0-4.8); MEAN CELL VOLUME 70.3 FL (80.0-100.0); MEAN CORPUSCULAR HEMOGLOBIN 21.2 PG (27.0-34.0); MEAN CORPUSCULAR HGB CONC 30.1 % (32.0-36.0); MEAN PLATELET VOLUME 9.3 FL (7.0-11.0); MONO % 15.9 % (0.0-8.0); MONOCYTE # 0.5 TH/MM3 (0-0.9); NEUT % 40.2 % (16.0-70.0); PLATELET COUNT 251 TH/MM3 (150-450); RED CELL DISTRIBUTION WIDTH 19.6 % (11.6-17.2); WHITE BLOOD COUNT 3.4 TH/MM3 (4.0-11.0)
[2017-12-19 13:29] LABS: ALBUMIN 3.3 GM/DL (3.4-5.0); AST (GOT) 29 U/L (15-37); BICARBONATE 25.7 MEQ/L (21.0-32.0); BLOOD UREA NITROGEN 7 MG/DL (7-18); CALCIUM 8.6 MG/DL (8.5-10.1); CHLORIDE 106 MEQ/L (98-107); CREATININE 0.72 MG/DL (0.50-1.00); GLOMERULAR FILTRATION RATE 88 ML/MIN (>89); GLUCOSE,RANDOM 105 MG/DL (74-106); SODIUM (NA) 140 MEQ/L (136-145)
[2017-12-19 13:32] LABS: ALKALINE PHOSPHATASE 102 U/L (45-117); ALT (GPT) 26 U/L (10-53); TOTAL BILIRUBIN ADULT 0.3 MG/DL (0.2-1.0); TOTAL PROTEIN 8.6 GM/DL (6.4-8.2)
[2017-12-19 14:04] LABS: BILIRUBIN, URINE NEG (NEG); BLOOD, URINE NEG (NEG); GLUCOSE,URINE NEG (NEG); KETONE, URINE NEG (NEG); NITRITE,URINE NEG (NEG); PH, URINE 8.5 (5.0-8.5); SQUAMOUS EPITHELIAL CELL URINE 1 /hpf (0-5); URINE COLOR LIGHT-YELLOW (YELLW/STRAW); URINE LEUKOCYTE ESTERASE NEG (NEG)
[2017-12-19 15:03] VITALS: BP 128/74; PULSE 76; RESP 16; O2SAT 99
[2017-12-19] MEDS ORDERED: ZANT150T2 PO (16:29)
[2017-12-19] MEDS ORDERED: DICY10 PO (16:29)
== END 2017-12-19 17:35 | disposition home or self-care (01) ==
LOC: NEPC 11:49
DX: R10.13 Epigastric pain (principal); R19.7 Diarrhea, unspecified; R11.0 Nausea; F17.200 Nicotine dependence, unspecified, uncomplicated
CPT/HCPCS: 80053; 81001; 83605; 83690; 85025; 87493; 87506; 96361; 96374; 96375; 99284; J2270; J7030